=== PATIENT | female | born 1990 | race Hispanic/Latino ===

== ENCOUNTER 2017-05-01 07:56 | Outpatient (CLI) | payer OTHER ==
[2017-05-01 09:49] VITALS: BP 99/57
--- NOTE | 2017-05-01 11:43 | Ultrasound Report ---
ULTRASOUND BIOPHYSICAL PROFILE: History: well being Technique: Transabdominal ultrasound with Doppler interrogation. 2 - breathing movements 2 - movements 2 - posture and tone 2 - Qualitative amniotic fluid volume 8 - TOTAL SCORE OF POSSIBLE 8 Heart Rate (bpm) 149
== END 2017-05-01 10:32 | disposition home or self-care (01) ==
LOC: TRG 07:56
PROVIDERS: ATTEND Obstetrics & Gynecology
DX: O47.1 False labor at or after 37 completed weeks of gestation (principal); Z3A.38 38 weeks gestation of pregnancy
CPT/HCPCS: 76819

== ENCOUNTER 2017-05-02 09:00 | Outpatient (CLI) | payer OTHER ==
[2017-05-02 09:30] VITALS: BP 130/75
== END 2017-05-02 10:15 | disposition home or self-care (01) ==
LOC: TRG 09:00
PROVIDERS: ATTEND Obstetrics & Gynecology
DX: O47.1 False labor at or after 37 completed weeks of gestation (principal); Z3A.38 38 weeks gestation of pregnancy
CPT/HCPCS: 59025

== ENCOUNTER 2017-05-03 01:49 | Inpatient (IN) | payer OTHER ==
[2017-05-03] MEDS ORDERED: LACTATED RINGERS 1,000 ML ONE (02:10)
[2017-05-03] MEDS ORDERED: ePHEDrine SULFATE IV PRN ×2 (02:13→03:05)
[2017-05-03] MEDS ORDERED: STADOL IV PRN (02:13)
[2017-05-03] MEDS ORDERED: BRETHINE IVP PRN (02:13)
[2017-05-03] MEDS ORDERED: BRETHINE SUB-Q PRN (02:13)
[2017-05-03] MEDS ORDERED: MINERAL OIL PO PRN (02:13)
[2017-05-03] MEDS ORDERED: XYLOCAINE 2% INFILTRATI ONE (02:13)
[2017-05-03] MEDS ORDERED: SUBLIMAZE IV PRN (02:23)
--- NOTE | 2017-05-03 02:27 | History and Physical Report ---
History of Present Illness Date of examination: 05/03/17 Date of admission: 05/03/2017 Chief complaint: Contractions History of present illness: 26yo G 1 P 0 at 38 weeks 2 days by LMP here with c/o worsening contractions since 19:00 and vaginal bleeding. She reports positive movements but denies leaking fluid. Her course is complicated by late care @ 35 weeks 1 day and anemia. She is on iron therapy. Her GBS is negative. Past History Past Medical History: other (vitamin D deficiency) Past Surgical History: no surgical history Family/Genetic History: diabetes (aunt, maternal grandmother, significant other , uncle), other (arthritis) Social history: single, other (lives with significant other) - Obstetrical History Expected Date of Delivery: 05/15/17 Actual Gestation: 38 Week(s) 2 Day(s) : 1 Para: 0 Hx # Term Pregnancies: 0 Number of Pregnancies: 0 Spontaneous Abortions: 0 Induced : 0 Number of Living Children: 0 Medications and Allergies Allergies Allergy/AdvReac Type Severity Reaction Status Date / Time No Known Allergies Allergy Verified 05/03/17 02:19 Home Medications Medication Instructions Recorded Confirmed Last Taken Type Ferrous Sulfate [Feosol] 325 mg PO BID 05/03/17 05/03/17 05/02/17 History Vit-Fe Fumar-FA [ 1 tab PO QDAY 05/03/17 05/03/17 05/02/17 History Vitamin] Review of Systems All systems: negative - Vital Signs Vital signs: Vital Signs Temp Resp 97.7 F 22 05/03/17 01:55 05/03/17 01:55 Temp Pulse Resp BP Pulse Ox 97.7 F 81 22 115/73 99 05/03/17 01:55 05/03/17 02:18 05/03/17 01:55 05/03/17 02:02 05/03/17 02:18 - Physical Exam Cardiovascular: Regular rate, Normal S1, Normal S2, No murmurs Lungs: Positive: Clear to auscultation, Normal air movement Abdomen: Positive: normal appearance, soft Genitourinary (Female): Positive: normal external genitalia, normal perenium Vulva: both: normal Vagina: Positive: normal moisture Uterus: Positive: normal size, normal contour Anus/Rectum: Positive: normal perianal skin Extremities: Positive: normal Deep Tendon Reflex Grade: Normal +2 - Obstetrical FHR: auscultation normal, category 1 FHR comments: baseline 130, moderate variability, 15x15 accels, no decels Uterine Contraction Monitor Mode: External Cervical Dilatation: 6.5 (per RN) Cervical Effacement Percentage: 90 (per RN) station: -2 Uterine Contraction Frequency (min): 3-5 Uterine Contraction Pattern: Regular Results Result Diagrams: 05/03/17 02:20 All other labs normal. Assessment and Plan - Patient Problems (1) Active labor at term Current Visit: Yes Status: Acute Plan to address problem: Admit to L&D with routine labor orders Expectant management If no cervical change in 2 hours, will start oxytocin for labor augmentation Anticipate vaginal delivery (2) 38 weeks gestation of Current Visit: Yes Status: Acute
[2017-05-03 02:41] LABS: Hematocrit 38.4 % (30.3-42.9); Hemoglobin 12.9 gm/dl (10.1-14.3); Mean Corpuscular HGB Conc 34 % (30-34); Mean Corpuscular Hemoglobin 28 pg (28-32); Mean Corpuscular Volume 83 fl (79-97); Platelet Count 228 K/mm3 (140-440); Red Blood Count 4.63 M/mm3 (3.65-5.03); Red Cell Distribution Width 18.1 % (13.2-15.2)
[2017-05-03] MEDS: LACTATED RINGERS 1,000 ML IV SCH ×3 (02:46→05:26)
[2017-05-03] MEDS ORDERED: PITOCin/NS 20 UNIT/1000ML DRIP 20 UNITS/1,000 ML BAG IV SCH (03:00)
[2017-05-03] MEDS ORDERED: NARCAN 2 MG/2 ML IV PRN (03:05)
--- NOTE | 2017-05-03 03:08 | Anesthesia Consultation ---
Anesthesia Consult and Med Hx Date of service: 05/03/17 - Airway Anesthetic Teeth Evaluation: Good ROM Head & Neck: Adequate Mental/Hyoid Distance: Adequate Mallampati Class: Class III Intubation Access Assessment: Probably Good - Pulmonary Exam CTA: Yes - Cardiac Exam Cardiac Exam: RRR - Pre-Operative Health Status Proposed Anesthetic Plan: Epidural, Spinal - Pulmonary Hx Smoking: No Hx Asthma: No COPD: No Hx Pneumonia: No - Cardiovascular System Hx Hypertension: No - Central Nervous System Hx Seizures: No Hx Psychiatric Problems: No - Endocrine Hx Renal Disease: No Hx End Stage Renal Disease: No Hx Hypothyroidism: No Hx Hyperthyroidism: No - Hematic Hx Anemia: No Hx Sickle Cell Disease: No - Other Systems Hx Alcohol Use: No
[2017-05-03] MEDS ORDERED: fentaNYL-BUPIV 2 MCG/ML-0.125% 200 MCG/100 ML BAG EPIDURAL SCH (04:00)
[2017-05-03] MEDS ORDERED: PITOCin/NS 30 UNIT/500ML 30,000 MILLIUNITS/500 ML BAG IV ONE (04:26)
--- NOTE | 2017-05-03 05:30 | Event Note ---
Date: 05/03/17 S: Pt in semi-valecnia's position with mom and spouse at bedside. Denies any pain s/p epidural anesthesia. O: FHR 130, moderate variability, + accels, no decels CTX q5-8mins, palpate moderate SVE 7/100/0/vtx/BBOW AROM @ 05:12, clear fluid, moderate amount A: 26yo G 1 P 0 @ 38 weeks 2 days by LMP Category I FHR Active Labor Pain well-controlled P: Start oxytocin for labor augmentation Anticipate vaginal delivery
--- NOTE | 2017-05-03 08:41 | Procedure Note ---
OB Delivery Note - Delivery Date of Delivery: 05/03/17 (08:06) Surgeon: STEF SHIN Estimated blood loss: 200cc - Vaginal Delivery presentation: vertex Delivery position: OA Intrapartum events: none Delivery induction: none Delivery augmentation: rupture of membranes (AROM @ 05:12), pitocin Delivery monitor: external FHT, external uterine Route of delivery: Delivery placenta: spontaneous (at 08:13) Episiotomy: none Delivery laceration: 1st degree (vaginal) Delivery repair: vicryl (3-0) Anesthesia: epidural Delivery comments: of a vigorous term female at 08:06. Baby placed skin to skin on maternal abdomen. After 3 mins of delayed cord clamping, umbilical cord double-clamped by CNM and cut by FOB. Spontaneous delivery of placenta with Don-side presenting @ 08:13. Moderate lochia noted. Fundal massage and IV Pitocin bolus initiated. Fundus F/ML/U. Clots and a small segment of placenta manually removed. Light lochia. 1st degree vaginal laceration noted and repaired using a 3-0 vicryl needle under epidural anesthesia. Pt tolerated the procedure well. Perineum intact. Placenta discarded. Mom and baby in stable condition. - Infant A at 1 minute: 8 at 5 minutes: 9 Infant Gender: Female (5 lbs 10 oz (2563 g), 17.25 in)
[2017-05-03] MEDS ORDERED: MILK OF MAGNESIA PO PRN (09:00)
[2017-05-03] MEDS ORDERED: ZOFRAN IV PRN (09:00)
[2017-05-03] MEDS ORDERED: BENADRYL PO PRN (09:00)
[2017-05-03] MEDS ORDERED: SODIUM CHLORIDE FLUSH SYRINGE 10 ML IV PRN (09:00)
[2017-05-03] MEDS ORDERED: LANSINOH TP PRN (09:00)
[2017-05-03] MEDS ORDERED: PHENERGAN PO PRN (09:00)
[2017-05-03] MEDS ORDERED: PHENERGAN PR PRN (09:00)
[2017-05-03] MEDS ORDERED: TYLENOL PO PRN (09:00)
[2017-05-03] MEDS ORDERED: TUCKS PAD TP PRN (09:00)
[2017-05-03] MEDS ORDERED: DULCOLAX PR PRN (10:00)
[2017-05-03] MEDS: NORCO 5/325 PO PRN ×2 (12:50→22:20)
[2017-05-03] MEDS: MOTRIN PO SCH (12:50)
[2017-05-03] MEDS: PRENATAL VITAMIN PO SCH (12:50)
[2017-05-03 20:26] LABS: Hematocrit 34.1 % (30.3-42.9); Hemoglobin 11.1 gm/dl (10.1-14.3)
[2017-05-04] MEDS: MOTRIN PO SCH ×3 (06:41→23:32)
--- NOTE | 2017-05-04 09:08 | Progress Note ---
Assessment and Plan - Patient Problems (1) (normal spontaneous vaginal delivery) Current Visit: Yes Status: Acute Plan to address problem: PPD 2 - stable Continue routine PP orders Discharge to home later today F/U @ [facility] in 6 weeks for PP exam Schedule appt with Aluminum Can Collector for exam roge Subjective - Subjective Date of service: 05/04/17 Principal diagnosis: Normal Spontaneous Vaginal Delivery Interval history: 26yo G 1 P 0 at 38 weeks 2 days by LMP here with c/o worsening contractions since 19:00 and vaginal bleeding. She reports positive movements but denies leaking fluid. Her course is complicated by late care @ 35 weeks 1 day and anemia. She is on iron therapy. Her GBS is negative. Patient reports: appetite normal, voiding normally, pain well controlled, ambulating normally [place]: doing well, nursing well Objective - Vital Signs Latest vital signs: Vital Signs Temp Pulse Resp BP BP Pulse Ox 05/04/17 00:45 98.4 F 81 18 105/58 96 05/03/17 20:10 98.9 F 94 H 18 104/70 97 05/03/17 15:51 98.4 F 98 H 20 120/70 95 05/03/17 11:46 98.4 F 95 H 20 126/74 97 05/03/17 09:50 64 123/68 Intake and Output 05/03/17 05/04/17 05/04/17 23:59 07:59 15:59 Intake Total 360 240 Output Total 350 Balance 10 240 Intake: Oral 360 240 Output: Urine 350 Void 350 Other: Total, Intake Amount 120 120 Total, Output Amount 350 # Voids Void 1 - Exam Cardiovascular: Present: Regular rate, Normal S1, Normal S2, No murmurs Lungs: Present: Clear to auscultation, Normal air movement Abdomen: Present: normal appearance, soft, normal bowel sounds Vulva: both: normal (bilateral labial edema) Uterus: Present: normal, firm, fundal height below umbilicus Extremities: Present: normal Deep Tendon Reflex Grade: Normal +2
--- NOTE | 2017-05-04 09:13 | Discharge Summary ---
Providers - Providers Date of Admission: 05/03/17 02:29 Date of discharge: 05/04/17 Attending physician: LIZBET BAINS MD Primary care physician: LIZBET BAINS MD Hospitalization Reason for admission: active labor, IUP at term Delivery: Episiotomy: none Laceration: 1st degree (vaginal) Other procedures: none complications: none Discharge diagnosis: IUP at term delivered baby: female Hospital course: Uncomplicated Condition at discharge: Stable Disposition: DC-01 TO HOME OR SELFCARE - Discharge Diagnoses (1) (normal spontaneous vaginal delivery) Status: Acute Plan - Provider Discharge Summary Activity: routine, no sex for 6 weeks, no heavy lifting 4 weeks, no strenuous exercise Diet: routine Instructions: routine Additional instructions: [] Smoking cessation referral if applicable(refer to patient education folder for contact #) [] Refer to [facility] Center Booklet Call your doctor immediately for: * Fever > 100.5 * Heavy vaginal bleeding ( >1 pad per hour) * Severe persistent headache * Shortness of breath * Reddened, hot, painful area to leg or breast * Drainage or odor from incision. * Keep incision clean and dry at all times and follow doctor's instructions regarding bathing/showering - Follow up plan Follow up: LIZBET BAINS MD [Primary Care Provider] - 6 Weeks (Follow up at [facility] in 6 weeks for PP exam Schedule appt with Mortician Investigator for exam roge)
[2017-05-04] MEDS: NORCO 5/325 PO PRN (09:45)
[2017-05-04] MEDS: PRENATAL VITAMIN PO SCH (12:00)
[2017-05-05] MEDS: MOTRIN PO SCH ×3 (05:27→17:05)
[2017-05-05] MEDS: PRENATAL VITAMIN PO SCH (12:46)
[2017-05-05 18:25] VITALS: BP 122/79
== END 2017-05-05 19:01 | disposition home or self-care (01) | DRG 775 ==
LOC: TRG 01:49 → LD 02:29 → TRG 02:29 → OB 10:28
PROVIDERS: ADMIT Obstetrics & Gynecology; ATTEND Obstetrics & Gynecology
PROC: 10E0XZZ Delivery of Products of Conception, External Approach (ICD-10-PCS; principal; 2017-05-03)
PROC: 0UQGXZZ Repair Vagina, External Approach (ICD-10-PCS; 2017-05-03)
PROC: 3E0R3BZ Introduction of Anesthetic Agent into Spinal Canal, Percutaneous Approach (ICD-10-PCS; 2017-05-03)
PROC: 00HU33Z Insertion of Infusion Device into Spinal Canal, Percutaneous Approach (ICD-10-PCS; 2017-05-03)
DX: O70.0 First degree perineal laceration during delivery (principal); Z3A.38 38 weeks gestation of pregnancy; Z37.0 Single live birth
CPT/HCPCS: 36415; 85014; 85018; 85027; 86592; 86850; 86900; 86901; 99211; G0463; J2590; J7120